=== PATIENT | male | born 1945 | race Caucasian/White ===

== ENCOUNTER 2017-10-03 03:31 | Emergency (ER) | payer MEDICARE, BC ==
[~2017-10-03] VITALS: Ht 172.7 cm; Wt 81.6 kg
--- NOTE | 2017-10-03 03:40 | NUR ---
PT BBRA [id number] WITH C/O OF "BLOOD IN URINE" S/P KIDNEY TUMOR REMOVAL 1 WK AGO. PT IS AAOX4. PT RESP EVEN AND NONE LABORED. SKIN PINK AND WARM. NO S/S OF ACUTE DISTRESS NOTED. PT ABLE TO GIVE URINE SPECIMEN VIA URINATION. URINE NOTED TO BE BLOOD TINGED. PT GOWNED AND PLACED ON MONITOR AND POX. VSS. CALL LIGHT WITHIN REACH. BED IN LOWEST POSITION AND SIDE RAILS RAISED. BEDSIDE WITH PT. BEDSIDE FOR EVAL.
[2017-10-03] MEDS ORDERED: MORPHINE SULFATE INJ 4 MG/ML DISP.SYRIN ONE (04:00)
[2017-10-03] MEDS ORDERED: MORPHINE SULFATE INJ 2 MG/ML DISP.SYRIN IV ONE (04:00)
[2017-10-03] MEDS ORDERED: ONDANSETRON HCL/PF 4 MG/2 ML VIAL ONE (04:05)
--- NOTE | 2017-10-03 04:20 | NUR ---
Patient is resting comfortably in bed with eyes closed. Easily aroused. VSS. BEDSIDE
[2017-10-03 04:28] LABS: BASOPHILS # (AUTO) 0.1 /CMM (0.0-0.2); BASOPHILS % (AUTO) 0.4 % (0.0-2.0); EOSINOPHILS # (AUTO) 0.4 /CMM (0.0-0.7); EOSINOPHILS % (AUTO) 2.4 % (0.0-6.0); HEMATOCRIT 37 % (39-51); HEMOGLOBIN 12.5 g/dL (13.5-17.5); LYMPHOCYTES % (AUTO) 19.6 % (20.0-44.0); MEAN CORPUSCULAR HEMOGLOBIN 31 PG (26.0-33.0); MEAN CORPUSCULAR HGB CONC 34 g/dl (31.0-36.0); MEAN CORPUSCULAR VOLUME 91 fL (80-96); MONOCYTES % (AUTO) 6.8 % (2.0-12.0); NEUTROPHILS # (AUTO) 10.9 /CMM (1.8-8.9); NEUTROPHILS % (AUTO) 70.8 % (43.0-81.0); PLATELET COUNT (AUTO) 413 /CMM (150-450); RDW COEFFICIENT OF VARIATION 13.3 (11.5-15.0); RED BLOOD CELL COUNT(AUTO) 4.08 MIL/uL (4.5-6.0); WHITE BLOOD COUNT (AUTO) 15.3 K/uL (4.3-11.0)
[2017-10-03] MEDS ORDERED: LIDOCAINE 2% JEL UROJET 10 ML MM ONE ×2 (04:28→04:30)
[2017-10-03] MEDS ORDERED: ONDANSETRON HCL/PF 4 MG/2 ML VIAL IVP ONE (04:30)
[2017-10-03] MEDS ORDERED: IV NS 0.9% 1,000 ML BAG MC ONE ×2 (04:30→05:00)
[2017-10-03 04:37] LABS: APPEARANCE,URINE TURBID (CLEAR); BILIRUBIN,URINE NEGATIVE (NEGATIVE); BLOOD, URINE 3+ Ery/uL (NEGATIVE); COLOR,URINE RED (YELLOW); KETONES,URINE NEGATIVE (NEGATIVE); LEUKOCYTE ESTERASE ,URINE NEGATIVE (NEGATIVE); NITRITE, URINE POSITIVE (NEGATIVE); PROTEIN,URINE 3+ mg/dl (NEGATIVE); UGLUCOSE TRACE mg/dL (NEGATIVE); UROBILINOGEN,URINE 0.2 EU/dL (0.2)
[2017-10-03 04:39] LABS: BACTERIA,URINE Few /HPF (None Seen); RBC,URINE TOO NUMEROUS TO COUN /HPF (0-2); SQUAMOUS EPITHELIAL CELL,UR Few /HPF (None Seen)
[2017-10-03 04:41] LABS: CALCIUM, SERUM 9.4 mg/dL (8.5-10.1); CARBON DIOXIDE 25 mmol/L (21-32); CHLORIDE 98 mmol/L (98-107); CREATININE 1.5 mg/dL (0.6-1.3); GLUCOSE 155 mg/dL (74-106); POTASSIUM 3.2 mmol/L (3.5-5.1); SODIUM SERUM 139 mmol/L (136-145); UREA NITROGEN, BLOOD 23 mg/dL (7-18)
--- NOTE | 2017-10-03 04:45 | NUR ---
Patient is resting comfortably in bed with eyes closed. Easily aroused. VSS. BEDSIDE
[2017-10-03] MEDS ORDERED: POTASSIUM CHLORIDE 20 MEQ TAB.PRT.SR PO ONE ×2 (05:00→05:06)
--- NOTE | 2017-10-03 05:15 | NUR ---
Patient is resting comfortably in bed with eyes closed. Easily aroused. VSS. BEDSIDE
--- NOTE | 2017-10-03 05:17 | NUR ---
SPEAKING WITH PT'S PMD REGARDING PT'S CARE.
[2017-10-03] MEDS ORDERED: HYDROMORPHONE 1 MG/1 ML DISP.SYRIN IV ONE (05:30)
--- NOTE | 2017-10-03 05:31 | NUR ---
BEDSIDE SPEAKING WITH PT
[2017-10-03] MEDS ORDERED: HYDROMORPHONE INJ 0.5 MG/0.5 ML SYRINGE ONE (05:39)
--- NOTE | 2017-10-03 05:54 | NUR ---
PER MD, BAG LEG ATTACHED TO PT PRIOR TO DISCHARGE.
--- NOTE | 2017-10-03 06:05 | NUR ---
Patient discharged to home in stable condition. Written and verbal after care instructions given. Patient verbalizes understanding of instruction.IV removed. Catheter intact and site benign. Pressure and 4x4 applied to site. No bleeding noted. VSS upon discharge. Instructed not to drive. stable gait while ambulating out of ER accompanied by . Instructed to get an appointment with pmd.
[2017-10-03 06:07] VITALS: BP 164/76
== END 2017-10-03 06:09 | disposition home or self-care (01) ==
LOC: ER 03:32
DX: R31.9 Hematuria, unspecified (principal); C64.1 Malignant neoplasm of right kidney, except renal pelvis; I10 Essential (primary) hypertension; Z85.46 Personal history of malignant neoplasm of prostate; Z90.5 Acquired absence of kidney
CPT/HCPCS: 36415; 80048-TC; 81000-TC; 85025-TC; 87086-TC; A4217; A4606; J2270; J2405; J3490; Z7610